=== PATIENT | male | born 1950 | race Caucasian/White ===

== ENCOUNTER 2020-05-05 01:52 | Emergency (ER) | payer MEDICARE ==
[2020-05-05] MEDS ORDERED: ASPIRIN TABLET 325 MG TAB PO ONE (02:03)
[2020-05-05] MEDS ORDERED: ALUM & MAG HYDROX-SIMETHICONE 30 ML, LIDOCAINE VISCOUS 2% 15 ML PO ONE ×2 (02:03)
--- NOTE | 2020-05-05 02:41 | RAD ---
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 No prior films are available this time for comparison. The cardiomediastinal silhouette demonstrate to be unremarkable. The heart is not enlarged. The thoracic aorta demonstrate minimal intimal cusp indication. Costophrenic angles are sharp. No areas of consolidation or masses are seen. The rest of the soft tissue and bony structures demonstrate to be unremarkable. The gas pattern is nondiagnostic. No signs of ileus or obstruction. No free air under the diaphragm is noted. No abnormal calcifications are seen. The bone windows demonstrate to be unremarkable. IMPRESSION: NO ACUTE CARDIOPULMONARY DISEASE IS SEEN. NONDIAGNOSTIC GAS PATTERN. NO SIGNS OF OBSTRUCTION OR ILEUS. Electronically signed by: Sly Valencia MD 05/05/2020 2:39 AM CARDIOTHORACIC SURGEON
[2020-05-05] MEDS ORDERED: PANTOPRAZOLE SODIUM IV 40 MG VIAL IV ONE (03:26)
[2020-05-05] MEDS ORDERED: SUCRALFATE 1 GM/10 ML 1 GM UD PO ONE (03:26)
--- NOTE | 2020-05-05 05:31 | ED.PDOC ---
History of Present Illness - General Chief Complaint: Chest Pain/CO Stated Complaint: CP radiating to back/shoulders Time Seen by Provider: 05/05/20 01:53 Source: patient Exam Limitations: no limitations - History of Present Illness Initial Comments: The patient is a 69-year-old male presenting to the emergency room secondary to reports of chest pain that started around 7 PM today. He indicates the chest pain is subxiphoid. It is worse with some pressure. It is not worse with activity. No shortness of breath. No nausea or vomiting. At times it is radiated somewhat to his back. He does have a longstanding history of gastroesophageal reflux disease and gastritis for which he takes Nexium. He also takes several times daily doses of indomethacin as well as other anti- inflammatories. No known aortic or definitive cardiac pathology. He reports he had a catheterization back in 2009 and did not receive any stents. He does have a history of hypertension. Timing/Duration: 4-6 hours Severity: moderate Improving Factors: medication Worsening Factors: nothing Associated Symptoms: malaise Allergies/Adverse Reactions: Allergies NO KNOWN ALLERGY Allergy (Verified 05/05/20 02:00) Home Medications: Ambulatory Orders Carvedilol 6.25 mg PO BID 05/05/20 Indomethacin 25 mg PO TID 05/05/20 Laxative PRN 05/05/20 Lisinopril 10 mg PO DAILY 05/05/20 Omeprazole 20 mg PO DAILY 05/05/20 Sucralfate Tab [Carafate Tab] 1 gm PO QID #120 tab 05/05/20 hydrALAZINE HCl [(None)] 25 mg PO PRN PRN 05/05/20 Review of Systems - Review of Systems Constitutional: States: malaise EENTM: States: no symptoms reported Respiratory: States: no symptoms reported Cardiology: States: chest pain Gastrointestinal/Abdominal: States: abdominal pain Genitourinary: States: no symptoms reported Musculoskeletal: States: no symptoms reported Skin: States: no symptoms reported Neurological: States: no symptoms reported Endocrine: States: no symptoms reported Hematologic/Lymphatic: States: no symptoms reported All other Systems: No Change from Baseline Past Medical History (General) - Patient Medical History Hx Seizures: No Hx Stroke: No Hx Dementia: No Hx Asthma: No Hx of COPD: No Hx Cardiac Disorders: No Hx Congestive Heart Failure: No Hx Pacemaker: No Hx Hypertension: Yes Hx Thyroid Disease: No Hx Diabetes: No Hx Gastroesophageal Reflux: Yes Hx Renal Disease: No Hx Cancer: Yes - skin Hx of HIV: No Hx Hepatitis C: No Hx MRSA: No Surgical History: tonsillectomy - Vaccination History Hx Tetanus, Diphtheria Vaccination: No Hx Influenza Vaccination: No Hx Pneumococcal Vaccination: No - Social History Hx Tobacco Use: Yes Hx Chewing Tobacco Use: Yes Family Medical History - Family History Mother Family History: Unknown Physical Exam - Physical Exam General Appearance: Alert, Anxious, No apparent distress Eye Exam: bilateral normal, bilateral abnormal EOM Ears, Nose, Throat: hearing grossly normal, normal pharynx Neck: full range of motion, supple Respiratory: lungs clear, normal breath sounds, no respiratory distress, no a ccessory muscle use Cardiovascular/Chest: normal peripheral pulses, regular rate, rhythm, no edema Peripheral Pulses: radial,right: 2+, radial,left: 2+ Gastrointestinal/Abdominal: soft, other - Epigastric tenderness to palpation. No rebound or peritoneal signs. No palpable mass. 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 The patient responded very positively to a dose of a GI cocktail. 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 He has been taking his omeprazole, however this is likely inadequate given the use of these other medications. He is going to be written for a month of Carafate and he does need to keep with him liquid Maalox or Mylanta for as needed use. The patient did have 2 sets of cardiac enzymes that were negative along with a reassuring chest x-ray and EKG. He has tested negative for coronavirus. Vital signs initially showed an elevated blood pressure however when the patient relaxed it did come back down towards normal. I do want patient to follow-up with his primary care doctor sometime next week for follow-up. ER warnings are given for any abrupt worsening. nell [email or web address] [id number] - Results/Orders Results/Orders: Chest x-ray showed no obvious acute pathology. See report for details. Nonobstructive bowel gas pattern. EKG shows normal sinus rhythm at 98 bpm. Normal axis. Normal R wave progression. No ST segment or T wave changes indicative of acute ischemia. Normal QT interval. Mild left atrial dilation. Covid negative. Laboratory Tests 05/05/20 05/05/20 05/05/20 02:00 02:00 02:00 WBC 10.9 H RBC 5.55 Hgb 16.1 Hct 48.1 MCV 86.7 MCH 29.1 MCHC 33.5 RDW 13.5 Plt Count 160 MPV 9.5 Absolute Neuts (auto) 9.10 H Absolute Lymphs (auto) 1.30 Absolute Monos (auto) 0.50 Absolute Eos (auto) 0.00 Absolute Basos (auto) 0.00 Neutrophils % 83.4 H Lymphocytes % 11.6 L Monocytes % 4.7 Eosinophils % 0.1 L Basophils % 0.2 PT 10.4 INR 1.05 PTT (SP) 22.4 D-Dimer, Quantitative 594.0 H Sodium 137 Potassium 4.0 Chloride 98 L Carbon Dioxide 26 Anion Gap 17.0 BUN 19 H Creatinine 1.08 BUN/Creatinine Ratio 17.6 Random Glucose 182 H Serum Osmolality 280.7 Calcium 9.8 Magnesium 1.9 Total Bilirubin 4.1 H* AST 211 H ALT 98 H Alkaline Phosphatase 60 Creatine Kinase 69 CK-MB (CK-2) 1.5 CK-MB (CK-2) % Not Reportable Troponin I < 0.02 B-Natriuretic Peptide 24.9 Serum Total Protein 8.5 H Albumin 4.5 Globulin 4.0 H Albumin/Globulin Ratio 1.1 Amylase 84 Lipase 53 H TSH 2.01 Urine Color Urine Appearance Urine pH Ur Specific [place] Urine Protein Urine Glucose (UA) Urine Ketones Urine Blood Urine Nitrite Urine Bilirubin Urine Urobilinogen Ur Leukocyte Esterase Urine RBC Urine WBC Ur Epithelial Cells Amorphous Sediment Urine Bacteria 05/05/20 05/05/20 02:15 04:55 WBC RBC Hgb Hct MCV MCH MCHC RDW Plt Count MPV Absolute Neuts (auto) Absolute Lymphs (auto) Absolute Monos (auto) Absolute Eos (auto) Absolute Basos (auto) Neutrophils % Lymphocytes % Monocytes % Eosinophils % Basophils % PT INR PTT (SP) D-Dimer, Quantitative Sodium Potassium Chloride Carbon Dioxide Anion Gap BUN Creatinine BUN/Creatinine Ratio Random Glucose Serum Osmolality Calcium Magnesium Total Bilirubin AST ALT Alkaline Phosphatase Creatine Kinase 51 CK-MB (CK-2) 1.2 CK-MB (CK-2) % Not Reportable Troponin I < 0.02 B-Natriuretic Peptide Serum Total Protein Albumin Globulin Albumin/Globulin Ratio Amylase Lipase TSH Urine Color Dk yellow Urine Appearance Clear Urine pH 7.5 Ur Specific [place] 1.025 Urine Protein Negative Urine Glucose (UA) 100 H Urine Ketones 15 H Urine Blood Negative Urine Nitrite Negative Urine Bilirubin Small H Urine Urobilinogen >= 8.0 H Ur Leukocyte Esterase Negative Urine RBC 0 Urine WBC 0-1 Ur Epithelial Cells 0 Amorphous Sediment 1+ Urine Bacteria 0 Departure - Departure Clinical Impression: NSAID induced gastritis Disposition: Discharge to Home or Self Care Condition: Fair Departure Forms: ED Discharge - Pt. Copy, Patient Portal Self Enrollment Instructions: DI for Chest Pain, Gastritis ED Diet: bland diet Activity: increase activity as tolerated Referrals: [facility] [Primary Care Provider] - 1-2 Weeks Prescriptions: Sucralfate Tab [Carafate Tab] 1 gm PO QID #120 tab Home Medications: Ambulatory Orders Carvedilol 6.25 mg PO BID 05/05/20 Indomethacin 25 mg PO TID 05/05/20 Laxative PRN 05/05/20 Lisinopril 10 mg PO DAILY 05/05/20 Omeprazole 20 mg PO DAILY 05/05/20 Sucralfate Tab [Carafate Tab] 1 gm PO QID #120 tab 05/05/20 hydrALAZINE HCl [(None)] 25 mg PO PRN PRN 05/05/20 Additional Instructions: The patient is a 69-year-old male presented to emergency room with chest pain that appears to be more epigastric in origin. The patient responded very positively to a dose of a GI cocktail. 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 He has been taking his omeprazole, however this is likely inadequate given the use of these other medications. He is going to be written for a month of Carafate and he does need to keep with him liquid Maalox or Mylanta for as needed use. The patient did have 2 sets of cardiac enzymes that were negative along with a reassuring chest x-ray and EKG. He has tested negative for coronavirus. Vital signs initially showed an elevated blood pressure however when the patient relaxed it did come back down towards normal. I do want patient to follow-up with his primary care doctor sometime next week for follow-up. ER warnings are given for any abrupt worsening.
[2020-05-05 06:42] VITALS: TEMP 97.6; O2SAT 96
[2020-05-05 06:46] VITALS: BP 176/106
== END 2020-05-05 05:50 | disposition home or self-care (01) ==
LOC: ER 01:52
DX: K29.70 Gastritis, unspecified, without bleeding (principal); T39.315A Adverse effect of propionic acid derivatives, initial encounter; I10 Essential (primary) hypertension; K21.9 Gastro-esophageal reflux disease without esophagitis; R07.9 Chest pain, unspecified; Z20.822 Contact with and (suspected) exposure to COVID-19; Z87.891 Personal history of nicotine dependence; Z85.828 Personal history of other malignant neoplasm of skin; Z79.899 Other long term (current) drug therapy